=== PATIENT | female | born 1985 | race Caucasian/White ===

== ENCOUNTER 2020-06-27 21:26 | Emergency (ER) | payer OTHER ==
[2020-06-27] MEDS ORDERED: CIPROFLOXACIN HCL/DEXAMETH OTIC DROP 7.5 ML AD ONE (22:40)
--- NOTE | 2020-06-27 22:42 | ER Document Report ---
ED ENT - General Chief Complaint: Ear Pain Stated Complaint: EAR PAIN, RIGHT SIDE OF THROAT SORE Time Seen by Provider: 06/27/20 22:35 Primary Care Provider: [facility] [Provider Group] - Follow up as needed - HPI Notes: Patient is a 34 y/o female with a hx of HTN who presents with right ear pain and sore throat that began today. Patient states she had sinus pressure that began yesterday. She denies fever, chest pain, shortness of breath, and vomiting. She has not taken anything for pain. She denies any sick contacts or potential COVID exposures. - Related Data Allergies/Adverse Reactions: No Known Allergies Allergy (Unverified 06/27/20 22:53) Home Medications: welbutrin, lisinopril, lamotrigine, control Past Medical History - General Information source: Patient - Social History Smoking Status: Never Smoker Frequency of alcohol use: None Drug Abuse: None Family History: Reviewed & Not Pertinent Patient has homicidal ideation: No - Past Medical History Cardiac Medical History: Reports: Hx Hypertension Past Surgical History: Reports: Hx Appendectomy, Hx Orthopedic Surgery - R hip Review of Systems - Review of Systems Constitutional: No symptoms reported EENT: See HPI Cardiovascular: No symptoms reported Respiratory: No symptoms reported Gastrointestinal: No symptoms reported Genitourinary: No symptoms reported Female Genitourinary: No symptoms reported Musculoskeletal: No symptoms reported Skin: No symptoms reported Hematologic/Lymphatic: No symptoms reported Neurological/Psychological: No symptoms reported Physical Exam - Vital signs Vitals: Temp Pulse Resp BP Pulse Ox 98.5 F 79 20 153/89 H 99 06/27/20 21:32 06/27/20 21:32 06/27/20 21:32 06/27/20 21:32 06/27/20 21:32 - Notes Notes: PHYSICAL EXAMINATION: GENERAL: Well-appearing, well-nourished and in no acute distress. HEAD: Atraumatic, normocephalic. EYES: sclera anicteric, conjunctiva are normal. ENT: Right EAC erythematous with excoriations but minimal swelling, TM clear with no bulging. Left EAC and TM clear with no bulging. Moist mucous membranes. Oropharynx clear with no exudates. NECK: Normal range of motion LUNGS: Normal work of breathing HEART: 2+ radial pulses bilaterally EXTREMITIES: no pitting or edema. No cyanosis. NEUROLOGICAL: No focal neurological deficits. Moves all extremities spontaneously and on command. PSYCH: Normal mood, normal affect. SKIN: Warm, Dry, normal turgor, no rashes or lesions noted. Course - Re-evaluation Re-evalutation: Presentation is most consistent with an acute otitis externa. Clinical history as well as exam is most consistent with this diagnosis. Based on history and examination do not suspect an acute meningitis, encephalitis, peritonsillar abscess, or retropharyngeal abscess. Patient is otherwise well in appearance, no acute distress. Vitals otherwise within normal limits. Rapid strep negative. The patient will be started on ciprodex drops (x3) twice a day for 10 days. At this time will discharge with return precautions and follow-up recommendations. Verbal discharge instructions given a the bedside to the patient and opportunity for questions given. Medication warnings reviewed. Patient is in agreement with this plan and has verbalized understanding of return precautions and the need for primary care follow-up in the next 24-72 hours. - Vital Signs Vital signs: Temp Pulse Resp BP Pulse Ox 98.5 F 79 20 153/89 H 99 06/27/20 21:32 06/27/20 21:32 06/27/20 21:32 06/27/20 21:32 06/27/20 21:32 - Laboratory Results Critical Laboratory Results Reviewed: No Critical Results - Radiology Results Critical Radiology Results Reviewed: No Critical Results Discharge - Discharge Clinical Impression: Otitis externa, Sore throat Condition: Stable Disposition: HOME, SELF-CARE Instructions: Use of Ear Drops ([facility]), Otitis Externa ([facility]), Sore Throat ([facility]) Referrals: [facility] [Provider Group] - Follow up as needed
[2020-06-28 00:15] VITALS: BP 143/93
== END 2020-06-28 00:15 | disposition home or self-care (01) ==
LOC: ER 21:26
DX: H60.90 Unspecified otitis externa, unspecified ear (principal); J02.9 Acute pharyngitis, unspecified; I10 Essential (primary) hypertension; H92.01 Otalgia, right ear; R09.89 Other specified symptoms and signs involving the circulatory and respiratory systems; Z79.899 Other long term (current) drug therapy; Z79.3 Long term (current) use of hormonal contraceptives
CPT/HCPCS: 99283; 87070; 87880; J3490